=== PATIENT | male | born 1965 | race Caucasian/White ===

== ENCOUNTER → 2017-02-12 | Outpatient (CLI) | payer BC ==
[~2017-02-12] MED LIST: CEPHALEXIN500 M1 PO; NO HOME MEDICATIONS
== END ==
LOC: ZCOL.LAB 16:17
DX: Z01.812 Encounter for preprocedural laboratory examination (principal); Z86.14 Personal history of Methicillin resistant Staphylococcus aureus infection

== ENCOUNTER → 2024-06-01 | Outpatient (CLI) | payer BC | LOC: COL.RAD 06:39 | DX: G45.3 Amaurosis fugax (principal) ==